=== PATIENT | female | born 1975 | race Caucasian/White ===

== ENCOUNTER 2017-04-17 06:04 | Day surgery (SDC) | payer OTHER ==
[2017-04-15 14:35] LABS: Hematocrit 40.6 % (33.0-51.0); Hemoglobin 13.1 g/dL (11.5-16.0); Mean Corpuscular HGB 26.1 pg (26.0-34.0); Mean Corpuscular HGB Conc 32.3 g/dL (31.5-36.5); Mean Corpuscular Volume 81 fL (80-100); Mean Platelet Volume 10.8 fL (9.1-12.4); Platelet Count 286 K/mm3 (150-400); RDW Coefficient Variation 21.5 % (11.7-14.2); RDW Standard Deviation 62.3 fL (35.1-46.3); Red Blood Cell Count 5.02 M/mm3 (3.80-5.20); White Blood Cell Count 7.48 K/mm3 (4.00-11.30)
[~2017-04-17] VITALS: Ht 165.1 cm; Wt 68.0 kg
[~2017-04-17 06:04] MED LIST: FIBER GUMMIES1 EACH; IBUP800 PO; IRON150C; MEDR10 PO; METHI10 PO; Metamucil0.52 GM PO; Omeprazole20 M1
[2017-04-18 05:19] LABS: BASOPHILS ABSOLUTE AUTO 0.05 K/mm3 (0.00-0.23); BASOPHILS PERCENT AUTO 1 % (0-2); EOSINOPHILS ABSOLUTE AUTO 0.09 K/mm3 (0.00-0.68); EOSINOPHILS PERCENT AUTO 1 % (0-6); Hematocrit 36.2 % (33.0-51.0); Hemoglobin 11.8 g/dL (11.5-16.0); IMMATURE GRAN ABSOLUTE AUTO 0.04 K/mm3 (0.00-0.10); IMMATURE GRAN PERCENT AUTO 0 % (0-1); LYMPHOCYTES PERCENT AUTO 21 % (21-46); MONOCYTES PERCENT AUTO 8 % (4-13); Mean Corpuscular HGB 26.7 pg (26.0-34.0); Mean Corpuscular HGB Conc 32.6 g/dL (31.5-36.5); Mean Corpuscular Volume 82 fL (80-100); Mean Platelet Volume 11.9 fL (9.1-12.4); NEUTROPHILS ABSOLUTE AUTO 7.24 K/mm3 (1.96-9.15); NEUTROPHILS PERCENT AUTO 69 % (41-73); Platelet Count 262 K/mm3 (150-400); RDW Coefficient Variation 22.3 % (11.7-14.2); Red Blood Cell Count 4.42 M/mm3 (3.80-5.20); White Blood Cell Count 10.42 K/mm3 (4.00-11.30)
[2017-04-18] MEDS ORDERED: IBUP800 PO (14:01)
[2017-04-18] MEDS ORDERED: Percocet 5-3251 EACH PO (14:01)
[2017-04-18] MEDS ORDERED: PROM25 PO (14:02)
[2017-04-18] MEDS ORDERED: DOCU100 PO (14:04)
[2017-04-18] MEDS ORDERED: Milk Of Ma400 MG/5 M PO (14:05)
== END 2017-04-18 15:00 | disposition home or self-care (01) ==
LOC: ORSCMMR 06:04 → SURS 10:45
PROVIDERS: Obstetrics & Gynecology
PROC: 0UT7FZZ Resection of Bilateral Fallopian Tubes, Via Natural or Artificial Opening With Percutaneous Endoscopic Assistance (ICD-10-PCS; principal; 2017-04-17 07:30)
PROC: 0UT1FZZ Resection of Left Ovary, Via Natural or Artificial Opening With Percutaneous Endoscopic Assistance (ICD-10-PCS; principal; 2017-04-17 07:30)
PROC: 0UT9FZZ Resection of Uterus, Via Natural or Artificial Opening With Percutaneous Endoscopic Assistance (ICD-10-PCS; principal; 2017-04-17 07:30)
DX: N92.1 Excessive and frequent menstruation with irregular cycle (principal); N80.0 Endometriosis of uterus; N83.12 Corpus luteum cyst of left ovary
CPT/HCPCS: 36415; 84703; 85025; 85027; 86850; 86900; 86901; 88307; J0171; J0690; J1885; J2250; J2405; J3010; J7030; J7120

== ENCOUNTER 2020-05-04 07:27 | Day surgery (SDC) | payer OTHER ==
[~2020-05-04] VITALS: Ht 165.1 cm; Wt 75.1 kg
[~2020-05-04 07:27] MED LIST changes: +DOCU100 PO; +Milk Of Ma400 MG/5 M PO; +PROM25 PO; +Percocet 5-3251 EACH PO
--- NOTE | 2020-05-04 08:42 | NUR ---
05/04/20 0842 Maria Guadalupe Robles BUPIVACAINE 0.5% 30 MLS MIXED WITH 0.15 ML EPI TO MAKE A CONCENTRATION OF BUPIVACAINE 0.5% 1:200,000 PER ORDER. 30 MLS OF BUPIVACAINE 0.5% 1:200,[address] LEIGH AT [facility].
== END 2020-05-04 10:06 | disposition home or self-care (01) ==
LOC: ORSCSDS 07:27
PROVIDERS: Podiatrist Foot & Ankle Surgery
PROC: 0SGM04Z Fusion of Right Metatarsal-Phalangeal Joint with Internal Fixation Device, Open Approach (ICD-10-PCS; principal; 2020-05-04 08:45)
DX: M20.5X1 Other deformities of toe(s) (acquired), right foot (principal); E05.90 Thyrotoxicosis, unspecified without thyrotoxic crisis or storm; Z79.899 Other long term (current) drug therapy
CPT/HCPCS: C1713; C1769; J0171; J0690; J2250; J2704; J3010

== ENCOUNTER 2024-01-25 10:47 | Emergency (ER) | payer OTHER ==
[~2024-01-25] VITALS: Ht 165.1 cm; Wt 74.8 kg
[2024-01-25] MEDS ORDERED: Ondansetron 4 MG SoluTab SL ONE (11:05)
[2024-01-25] MEDS ORDERED: NS 1,000 ML IV SCH (11:10)
[2024-01-25 12:32] LABS: BASOPHILS ABSOLUTE AUTO 0.07 K/mm3 (0.00-0.23); BASOPHILS PERCENT AUTO 1 % (0-2); EOSINOPHILS ABSOLUTE AUTO 0.08 K/mm3 (0.00-0.68); EOSINOPHILS PERCENT AUTO 1 % (0-6); Hematocrit 45.4 % (33.0-51.0); Hemoglobin 15.7 g/dL (11.5-16.0); IMMATURE GRAN ABSOLUTE AUTO 0.07 K/mm3 (0.00-0.10); IMMATURE GRAN PERCENT AUTO 1 % (0-1); LYMPHOCYTES ABSOLUTE AUTO 2.08 K/mm3 (0.84-5.20); LYMPHOCYTES PERCENT AUTO 14 % (21-46); MONOCYTES ABSOLUTE AUTO 0.98 K/mm3 (0.16-1.47); MONOCYTES PERCENT AUTO 7 % (4-13); Mean Corpuscular HGB 28.4 pg (26.0-34.0); Mean Corpuscular HGB Conc 34.6 g/dL (31.5-36.5); Mean Corpuscular Volume 82 fL (80-100); Mean Platelet Volume 10.7 fL (9.1-12.4); NEUTROPHILS ABSOLUTE AUTO 11.91 K/mm3 (1.96-9.15); NEUTROPHILS PERCENT AUTO 78 % (41-73); Platelet Count 358 K/mm3 (150-400); RDW Coefficient Variation 13.8 % (11.7-14.2); RDW Standard Deviation 41.6 fL (35.1-46.3); Red Blood Cell Count 5.52 M/mm3 (3.80-5.20); White Blood Cell Count 15.19 K/mm3 (4.00-11.30)
[2024-01-25 12:45] LABS: Albumin, Blood 4.1 g/dL (3.4-5.0); Albumin/Globulin Ratio 1.1 (0.8-1.8); Bilirubin, Total 0.8 mg/dL (0.1-1.0); Bun/Creatinine Ratio 16.1 (12.0-20.0); Calcium, Blood 9.7 mg/dL (8.5-10.1); Creatinine, Blood 0.75 mg/dL (0.40-1.00); Globulin, Blood 3.7 g/dL (2.2-4.0); Potassium, Blood 3.4 mmol/L (3.5-5.5); Total Protein, Blood 7.8 g/dL (6.4-8.2)
[2024-01-25] MEDS ORDERED: Atropine/Scopalam/Hyoscam/PB 5 ML UDC PO ONE (13:10)
[2024-01-25] MEDS ORDERED: Mag Hydrox/AL Hydrox/Simeth 30 ML UDC PO ONE (13:10)
[2024-01-25] MEDS ORDERED: Lidocaine 2% Viscous Soln 15 ML UDC PO ONE (13:10)
[2024-01-25 14:08] LABS: Source, Urine Clean Catch
[2024-01-25] MEDS ORDERED: OMEP20ER PO (14:13)
[2024-01-25] MEDS ORDERED: RX Prepack 2 Tabs Ondansetron ODT 4MG UD ONE (14:15)
[2024-01-25 14:20] LABS: Bilirubin, Urine Neg (Neg); Blood, Urine 1+ (Neg); Color, Urine Yellow (P-Yellow); Glucose Qualitative, Urine Neg (Neg); Ketones, Urine 4+ (Neg); Leukocyte Esterase, Urine 1+ (Neg); Nitrite, Urine Neg (Neg); Protein, Urine 1+ (Neg); Specific Gravity, Urine 1.015 (1.003-1.022); Urobilinogen, Urine NORM (Normal); pH, Urine 6.5 (5.0-8.0)
[2024-01-25 14:25] LABS: Appearance, Urine Clear (Clear)
[2024-01-25 14:26] LABS: Bacteria Many /hpf; Mucus Light (0-Heavy); Squamous Epithelial Cells Few /hpf (Few)
[2024-01-25] MEDS ORDERED: ONDA4ODT MM (14:37)
[2024-01-25 14:40] VITALS: BP 128/88
== END 2024-01-25 14:45 | disposition home or self-care (01) ==
LOC: ER 10:47
PROVIDERS: Physician Assistant
DX: K29.00 Acute gastritis without bleeding (principal); Z91.018 Allergy to other foods; Z79.899 Other long term (current) drug therapy
CPT/HCPCS: 76705; 80053; 81001; 83690; 85025; 87086; 93005; 93010; 96360; 96361; 99284-25; A9270; J7030